=== PATIENT | female | born 1970 | race Caucasian/White ===

== ENCOUNTER → 2017-01-17 | Outpatient (CLI) | payer OTHER ==
--- NOTE | 2017-01-19 11:48 | KCIC ---
DATE: 01/18/2017 EXAM: MAMMO ZORAIDA SCREENING BILATERAL HISTORY: 46-year-old female for routine screening COMPARISON: 2014 and 2011 mammograms This study was interpreted with the benefit of Computerized Aided Detection (CAD ). FINDINGS: Breast Density: SCATTERED The breast parenchyma shows scattered fibroglandular densities. Breast parenchyma level B. There is a 5 mm ill-defined nodule within the right upper outer breast in the prepectoral soft tissue approximately 12 cm from the nipple. No suspicious calcifications. Left breast show no abnormality. IMPRESSION: Small ill-defined nodular density within right breast upper outer quadrant in the prepectoral soft tissue. Targeted Ultrasound recommended for further evaluation. BI-RADS CATEGORY: 0 INCOMPLETE: NEED ADDITIONAL IMAGING EVAULATION AND/OR PRIOR MAMMOGRAMS FOR COMPARISON RECOMMENDED FOLLOW-UP: PQRS compliance statement: Patient information was entered into a reminder system with a target due date for the next mammogram. Mammography is a sensitive method for finding small breast cancers, but it does not detect them all and is not a substitute for careful clinical examination. A negative mammogram does not negate a clinically suspicious finding and should not result in delay in biopsying a clinically suspicious abnormality. "Our facility is accredited by the [employer] Mammography Program." MTDD
== END | disposition home or self-care (01) ==
LOC: KCIC MAMMO 15:25
PROVIDERS: ATTEND Hospitalist
DX: Z12.31 Encounter for screening mammogram for malignant neoplasm of breast (principal)
CPT/HCPCS: 77063; G0202; 77067

== ENCOUNTER → 2017-01-20 | Outpatient (CLI) | payer OTHER ==
--- NOTE | 2017-01-20 16:02 | RAD ---
Ultrasound of the right breast Indication: Callback Technique: Targeted ultrasound of the right breast. Comparison: Is mammogram from 01/17/2017. Findings: No abnormal cystic or solid lesions were identified from 9:00 to 12:00 area on the ultrasound. Impression: No solid or cystic lesions seen on the targeted ultrasound in the region of abnormality seen on prior mammogram. BI-RADS 3: Probably benign. Follow-up right breast mammogram in 6 months.
== END | disposition home or self-care (01) ==
LOC: US 12:48
PROVIDERS: ATTEND Hospitalist
DX: R92.8 Other abnormal and inconclusive findings on diagnostic imaging of breast (principal)
CPT/HCPCS: 76641

== ENCOUNTER 2020-12-02 10:17 | Emergency (ER) | payer OTHER ==
[~2020-12-02] VITALS: Ht 172.7 cm; Wt 86.0 kg
--- NOTE | 2020-12-02 10:43 | ED.ADGEN ---
General Adult EDM: Chief Complaint: CHEST PAIN HPI: HPI: Patient is a 50-year-old female who arrives ambulatory to the emergency department complaining of midsternal chest pain which radiates through to her back. Patient reports this has been ongoing since yesterday and happens intermittently. Patient describes this as a muscle spasm which comes and goes and is not necessarily impacted by any particular activity. The patient states she has had muscle spasms before however she has had nothing like this in her chest. The patient states when it does happen it is very severe in nature and takes her breath away. The patient denies any history of recent illness. She further denies any history of coronary artery disease. She is awake, alert and nontoxic-appearing. Review of Systems: Review of Systems: Constitutional: Denies fever or chills. [] Eyes: Denies change in visual acuity. [] HENT: Denies nasal congestion or sore throat. [] Respiratory: Denies cough or shortness of breath. [] Cardiovascular: Reports chest pain. Denies edema. [] GI: Denies abdominal pain, nausea, vomiting, bloody stools or diarrhea. [] : Denies dysuria. [] Musculoskeletal: Reports thoracic back pain. [] Integument: Denies rash. [] Neurologic: Denies headache, focal weakness or sensory changes. [] Endocrine: Denies polyuria or polydipsia. [] Lymphatic: Denies swollen glands. [] Psychiatric: Denies depression or anxiety. [] Current Medications: Current Medications Medications (Trade) Dose Ordered Sig/[facility] Start Time Stop Time Status Last Admin Dose Admin Aspirin (Aspirin Chewable) 324 mg 1X ONCE 12/02/20 11:00 12/02/20 11:01 DC 12/02/20 11:25 324 MG Allergies: Allergies: Allergies Coded Allergies Type Severity Reaction Last Updated Verified fluconazole Allergy Intermediate Hives 12/02/20 Yes Physical Exam: PE: Constitutional: Well developed, well nourished, no acute distress, non-toxic appearance. [] HENT: Normocephalic, atraumatic, bilateral external ears normal, oropharynx moist, no oral exudates, nose normal. [] Eyes: PERRLA, EOMI, conjunctiva normal, no discharge. [] Neck: Normal range of motion, no tenderness, supple, no stridor. [] Cardiovascular:Heart rate regular rhythm, no murmur [] Lungs & Thorax: Bilateral breath sounds clear to auscultation [] Abdomen: Bowel sounds normal, soft, no tenderness, no masses, no pulsatile masses. [] Skin: Warm, dry, no erythema, no rash. [] Back: No tenderness, no CVA tenderness. [] Extremities: No tenderness, no cyanosis, no clubbing, ROM intact, no edema. [] Neurologic: Alert and oriented X 3, normal motor function, normal sensory f unction, no focal deficits noted. [] Psychologic: Affect normal, judgement normal, mood normal. [] Current Patient Data: Labs: Laboratory Tests Test 12/02/20 10:50 12/02/20 10:58 White Blood Count 4.8 x10^3/uL (4.0-11.0) Red Blood Count 4.06 x10^6/uL (3.50-5.40) Hemoglobin 11.8 g/dL (12.0-15.5) L Hematocrit 34.8 % (36.0-47.0) L Mean Corpuscular Volume 86 fL (79-100) Mean Corpuscular Hemoglobin 29 pg (25-35) Mean Corpuscular Hemoglobin Concent 34 g/dL (31-37) Red Cell Distribution Width 14.7 % (11.5-14.5) H Platelet Count 308 x10^3/uL (140-400) Neutrophils (%) (Auto) 48 % (31-73) Lymphocytes (%) (Auto) 44 % (24-48) Monocytes (%) (Auto) 6 % (0-9) Eosinophils (%) (Auto) 1 % (0-3) Basophils (%) (Auto) 1 % (0-3) Neutrophils # (Auto) 2.3 x10^3/uL (1.8-7.7) Lymphocytes # (Auto) 2.1 x10^3/uL (1.0-4.8) Monocytes # (Auto) 0.3 x10^3/uL (0.0-1.1) Eosinophils # (Auto) 0.1 x10^3/uL (0.0-0.7) Basophils # (Auto) 0.0 x10^3/uL (0.0-0.2) Sodium Level 145 mmol/L (136-145) Potassium Level 4.1 mmol/L (3.5-5.1) Chloride Level 107 mmol/L (98-107) Carbon Dioxide Level 33 mmol/L (21-32) H Anion Gap 5 (6-14) L Blood Urea Nitrogen 10 mg/dL (7-20) Creatinine 0.7 mg/dL (0.6-1.0) Estimated GFR (Cockcroft-Gault) 88.2 BUN/Creatinine Ratio 14 (6-20) Glucose Level 88 mg/dL (70-99) Calcium Level 9.4 mg/dL (8.5-10.1) Total Bilirubin 0.3 mg/dL (0.2-1.0) Aspartate Amino Transferase (AST) 17 U/L (15-37) Alanine Aminotransferase (ALT) 23 U/L (14-59) Alkaline Phosphatase 55 U/L (46-116) Troponin I Quantitative < 0.017 ng/mL (0.000-0.055) LY-Lxa-L-Type Natriuretic Peptide 59 pg/mL (0-124) Total Protein 7.5 g/dL (6.4-8.2) Albumin 4.0 g/dL (3.4-5.0) Albumin/Globulin Ratio 1.1 (1.0-1.7) Lipase 202 U/L (73-393) POC Troponin I 0.00 ng/ml (<0.08) Laboratory Tests 12/02/20 10:50 Laboratory Tests 12/02/20 10:50 Vital Signs: Vital Signs Date Time Temp Pulse Resp B/P (MAP) Pulse Ox O2 Delivery O2 Flow Rate FiO2 12/02/20 10:57 98.5 67 20 152/88 97 Room Air 98.5 EKG: EKG: [] EKG was obtained at 10:23 AM and revealed a normal sinus rhythm with a ventricular rate of 63 bpm. There are no acute ST/T wave changes to denote ischemia. Repeat EKG was performed at 11:01 AM and revealed a normal sinus rhythm with a ventricular rate of 61 bpm. There are no acute ST/T wave changes to denote ischemia. Heart Score: C/O Chest Pain: Yes HEART Score for Chest Pain: HEART Score for Chest Pain Response (Comments) Value History Slighlty/Non-Suspicious 0 ECG Normal 0 Age >45 - < 65 1 Risk Factors 1 or 2 Risk Factors 1 Troponin < Normal Limit 0 Total 2 Risk Factors: Risk Factors: DM, Current or recent (<one month) smoker, HTN, HLP, family hist ory of CAD, obesity. Risk Scores: Score 0 - 3: 2.5% MACE over next 6 weeks - Discharge Home Score 4 - 6: 20.3% MACE over next 6 weeks - Admit for Clinical Observation Score 7 - 10: 72.7% MACE over next 6 weeks - Early Invasive Strategies Radiology/Procedures: Radiology/Procedures: [] Impression: [facility] [address] [place] [address] IMAGING REPORT Signed PATIENT: MORIAH ROBERTS ACCOUNT: [id number] : 1970 LOCATION: ER AGE: 50 SEX: F EXAM STATUS: PRE ER ORD. PHYSICIAN: ISAIAS HAMM DO REASON: Pain PROCEDURE: PORTABLE CHEST 1V INDICATION: Reason: Pain of the abdomen/ Spl. Instructions: / History: COMPARISON: None. FINDINGS: Single view of chest obtained. No focal airspace consolidation. Cardiomediastinal contour unremarkable. No acute osseous abnormality. IMPRESSION: * No focal airspace consolidation or edema. Electronically signed by: Misael Davis MD (12/02/2020 11:06 AM) [id number] DICTATED and SIGNED BY: MISAEL DAVIS MD DATE: 12/02/20 [id number] Course & Med Decision Making: Course & Med Decision Making Pertinent Labs and Imaging studies reviewed. (See chart for details) [] Dragon Disclaimer: Dragon Disclaimer: This electronic medical record was generated, in whole or in part, using a voice recognition dictation system. Departure Departure Impression: Primary Impression: Atypical chest pain Disposition: HOME / SELF CARE / HOMELESS Condition: STABLE Referrals: PASHA PERSAUD MD (PCP) Patient Instructions: Chest Pain (Nonspecific) Additional Instructions: The patient remains awake, alert and in no acute distress. The patient is without pain at this time. After further discussion with the patient she states this has been ongoing since 10:00 yesterday. This effectively rules out any acute cardiac condition given that the patient's EKG does not demonstrate ischem ia nor are there any changes in her cardiac enzymes. Moreover the patient does relate to me that this has been more affected with movement. The patient also states that she has a history of having had a gastric sleeve and wonders if this may be in conjunction what may be causing her symptoms. I have advised that she follow-up with her primary care physician and consider GI consultation with respect to her pain. It is very possible the patient may suffer from either musculoskeletal condition or even esophageal spasms. Should the patient develop any new shortness of air or chest pain of advised her to return. The patient understands and has agreed to do so. She is nontoxic-appearing and stable for discharge. Scripts Cyclobenzaprine Hcl (CYCLOBENZAPRINE HCL) 10 Mg Tablet 1 TAB PO Q12HR for 5 Days, #10 TAB Prov: ISAIAS HAMM DO 12/02/20 Tramadol Hcl (ULTRAM) 50 Mg Tablet 50 MG PO Q6HRS PRN for PAIN for 3 Days, #12 TAB 0 Refills Prov: ISAIAS HAMM DO 12/02/20 ISAIAS HAMM DO Dec 02, 2020 10:43
[2020-12-02] MEDS ORDERED: ASPIRIN CHEWABLE 81 MG TABLET. PO ONE (11:00)
[2020-12-02 11:07] LABS: BASO % 1 % (0-3); EOS # 0.1 x10^3/uL (0.0-0.7); EOS % 1 % (0-3); HEMATOCRIT 34.8 % (36.0-47.0); HEMOGLOBIN 11.8 g/dL (12.0-15.5); LYMPH # 2.1 x10^3/uL (1.0-4.8); LYMPH % 44 % (24-48); MEAN CORPUSCULAR HEMOGLOBIN 29 pg (25-35); MEAN CORPUSCULAR HGB CONC 34 g/dL (31-37); MEAN CORPUSCULAR VOLUME 86 fL (79-100); MONO # 0.3 x10^3/uL (0.0-1.1); MONO % 6 % (0-9); NEUT # 2.3 x10^3/uL (1.8-7.7); NEUT % 48 % (31-73); PLATELET COUNT 308 x10^3/uL (140-400); RED BLOOD COUNT 4.06 x10^6/uL (3.50-5.40); RED CELL DISTRIBUTION WIDTH 14.7 % (11.5-14.5); WHITE BLOOD COUNT 4.8 x10^3/uL (4.0-11.0)
--- NOTE | 2020-12-02 11:08 | RAD ---
INDICATION: Reason: Pain of the abdomen/ Spl. Instructions: / History: COMPARISON: None. FINDINGS: Single view of chest obtained. No focal airspace consolidation. Cardiomediastinal contour unremarkable. No acute osseous abnormality. IMPRESSION: * No focal airspace consolidation or edema. Electronically signed by: Misael Turner MD (12/02/2020 11:06 AM) [id number]
--- NOTE | 2020-12-02 11:14 | EKG ---
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
--- NOTE | 2020-12-02 11:15 | EKG ---
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
[2020-12-02 11:19] LABS: CALCIUM 9.4 mg/dL (8.5-10.1); CREATININE 0.7 mg/dL (0.6-1.0); GFR 88.2; POTASSIUM 4.1 mmol/L (3.5-5.1)
[2020-12-02 11:25] LABS: ALBUMIN/GLOBULIN RATIO 1.1 (1.0-1.7); TOTAL BILIRUBIN 0.3 mg/dL (0.2-1.0); TOTAL PROTEIN 7.5 g/dL (6.4-8.2)
[2020-12-02 13:00] VITALS: BP 150/88
[2020-12-02] MEDS ORDERED: CYCL10TA2 PO (13:02)
[2020-12-02] MEDS ORDERED: TRAM-48 PO (13:02)
[2020-12-02] MEDS ORDERED: ONDANSETRON PF 4 MG/2 ML VIAL. IVP ONE (13:30)
[2020-12-02] MEDS ORDERED: MORPHINE SULFATE 2 MG/ML INJ. IV ONE (13:30)
== END 2020-12-02 13:52 | disposition home or self-care (01) ==
LOC: ER 10:17
DX: R07.2 Precordial pain (principal); Z88.8 Allergy status to other drugs, medicaments and biological substances
CPT/HCPCS: 36415; 71045; 80053; 83690; 83880; 84484; 85025; 93005; 96374; 96375; 99285; J2270; J2405